=== PATIENT | female | born 1940 | race Caucasian/White ===

== ENCOUNTER 2022-12-26 13:29 | Outpatient (RCR) | payer MEDICARE, OTHER, SELFPAY | END 2023-06-24 23:59 | disposition home or self-care (01) | LOC: CCIC 13:29 | PROVIDERS: PCP Internal Medicine; Visit Provider Radiology Radiation Oncology | DX: C4A.9 Merkel cell carcinoma, unspecified (principal) | CPT/HCPCS: 99211 ==

== ENCOUNTER 2023-06-09 12:00 | Outpatient (CLI) | payer MEDICARE, OTHER, SELFPAY | END 2023-06-09 12:01 | disposition home or self-care (01) | LOC: CT 12:02 | PROVIDERS: PCP Internal Medicine; Visit Provider Radiology Radiation Oncology | DX: D49.2 Neoplasm of unspecified behavior of bone, soft tissue, and skin (principal) | CPT/HCPCS: 71250 ==